=== PATIENT | female | born 2000 ===

== ENCOUNTER 2025-06-05 12:29 | Outpatient (CLI) | payer OTHER | END 2025-06-05 12:32 | disposition home or self-care (01) | LOC: PRENATAL 12:29 | PROVIDERS: ATTEND Obstetrics & Gynecology Maternal & Fetal Medicine | DX: O44.00 Complete placenta previa NOS or without hemorrhage, unspecified trimester (principal); O32.9XX0 Maternal care for malpresentation of fetus, unspecified, not applicable or unspecified; Z3A.20 20 weeks gestation of pregnancy ==

== ENCOUNTER → 2025-09-05 07:07 | Outpatient (CLI) | payer OTHER | END | disposition home or self-care (01) | LOC: PRENATAL 07:07 | PROVIDERS: ATTEND Obstetrics & Gynecology Maternal & Fetal Medicine | DX: O26.843 Uterine size-date discrepancy, third trimester (principal); O36.8130 Decreased fetal movements, third trimester, not applicable or unspecified; O32.9XX0 Maternal care for malpresentation of fetus, unspecified, not applicable or unspecified; Z3A.34 34 weeks gestation of pregnancy ==